=== PATIENT | female | born 1945 | race Caucasian/White ===

== ENCOUNTER 2023-02-09 12:06 | Emergency (ER) | payer MEDICARE ==
[2023-02-09] MEDS ORDERED: cloNIDine 0.1 MG Tab PO STA (12:19)
[2023-02-09 12:42] LABS: BASOPHILS ABSOLUTE AUTO 0.02 10^3/uL (0.00-0.50); BASOPHILS PERCENT AUTO 0.3 % (0-1); EOSINOPHILS ABSOLUTE AUTO 0.09 10^3/uL (0.00-1.50); EOSINOPHILS PERCENT AUTO 1.4 % (0-6); HEMATOCRIT 42.2 % (37.0-47.0); HEMOGLOBIN 14.1 g/dL (12.0-16.0); IMMATURE GRAN ABSOLUTE AUTO 0.04 10^3/uL (0.00-0.49); IMMATURE GRAN PERCENT AUTO 0.6 % (0.0-4.9); LYMPHOCYTES ABSOLUTE AUTO 2.46 10^3/uL (0.60-5.00); LYMPHOCYTES PERCENT AUTO 39.4 % (24-44); MEAN CORPUSCULAR HEMOGLOBIN 28.6 pg (27.0-32.0); MEAN CORPUSCULAR HGB CONC 33.4 g/dL (32.0-36.0); MEAN CORPUSCULAR VOLUME 85.6 fL (83.0-97.0); MONOCYTES ABSOLUTE AUTO 0.24 10^3/uL (0.00-1.50); MONOCYTES PERCENT AUTO 3.8 % (0-10); NEUTROPHILS ABSOLUTE AUTO 3.39 x10^3/uL (1.80-8.00); NEUTROPHILS PERCENT AUTO 54.5 % (41-71); PLATELET COUNT,PLT 252 10^3/uL (150-400); RED BLOOD CELL COUNT 4.93 x10^6/uL (4.00-5.50); WHITE BLOOD CELL COUNT,WBC 6.2 10^3/uL (4.0-11.0)
[2023-02-09 12:45] LABS: APPEARANCE,URINE CLEAR (CLEAR); BILIRUBIN,URINE NEGATIVE (NEGATIVE); COLOR,URINE YELLOW (YELLOW); GLUCOSE,URINE NEGATIVE (NEGATIVE); KETONES,URINE NEGATIVE (NEGATIVE); LEUKOCYTE ESTERASE,URINE NEGATIVE (NEGATIVE); NITRITE,URINE NEGATIVE (NEGATIVE); OCCULT BLOOD,URINE TRACE-INTACT (NEGATIVE); PROTEIN,URINE NEGATIVE (NEGATIVE); UROBILINOGEN,URINE 0.2 EU/dL (0.2-1.0)
[2023-02-09 12:52] LABS: BACTERIA,URINE NOT SEEN /HPF (NOT SEEN); EPITHELIAL CELLS,URINE NOT SEEN /HPF (NOT SEEN); MUCUS,URINE NOT SEEN /HPF (NOT SEEN); RBC,URINE 0-5 /HPF (0-5); WBC,URINE NOT SEEN /HPF (0-5)
[2023-02-09 12:53] LABS: ALBUMIN 3.6 g/dL (3.4-5.0); BILIRUBIN TOTAL 0.7 mg/dL (0.0-1.0); C-REACTIVE PROTEIN 1.7 mg/dL (0.2-0.8); CALCIUM 9.2 mg/dL (8.4-10.1); CREATININE 0.9 mg/dL (0.6-1.0); EST CRCL DRUG DOSING (CG) 40.75 mL/min; POTASSIUM,K 4.1 mEq/L (3.5-5.0); PROTEIN TOTAL,TP 7.6 g/dL (6.4-8.2)
== END 2023-02-09 14:00 | disposition home or self-care (01) ==
LOC: CC.ED 12:06
DX: I10 Essential (primary) hypertension (principal); Z79.899 Other long term (current) drug therapy; Z88.0 Allergy status to penicillin; Z88.2 Allergy status to sulfonamides
CPT/HCPCS: 36415; 80053; 81001; 84484; 85025; 85379; 86140; 93005; 93010; 99284; 99285; A9270-GY

== ENCOUNTER 2024-03-11 11:00 | Day surgery (SDC) | payer MEDICARE, OTHER ==
[2024-03-11] MEDS: Lactated Ringers 1,000 ML IV SCH (11:37)
[2024-03-11] MEDS ORDERED: Ketamine 200 MG/20 ML MDV ONE (11:54)
[2024-03-11] MEDS ORDERED: Propofol 200 MG/20 ML SDV ONE ×2 (11:54)
[2024-03-11] MEDS ORDERED: Phenylephrine 1% 10 MG/ML SDV ONE (11:54)
[2024-03-11] MEDS ORDERED: Midazolam 1 MG/ML 2 ML SDV ONE (11:54)
[2024-03-11] MEDS ORDERED: Flumazenil 0.1 MG/ML 10 ML MDV ONE (11:54)
[2024-03-11] MEDS ORDERED: fentaNYL 50 MCG/ML SDV ONE ×2 (11:54)
== END 2024-03-11 13:18 | disposition home or self-care (01) ==
LOC: CC.SDS 11:00
PROVIDERS: ATTEND Family Medicine
DX: K55.9 Vascular disorder of intestine, unspecified (principal); I10 Essential (primary) hypertension; E78.5 Hyperlipidemia, unspecified; Z88.0 Allergy status to penicillin; Z88.2 Allergy status to sulfonamides; Z91.013 Allergy to seafood; Z79.899 Other long term (current) drug therapy
CPT/HCPCS: 00811; 45380; 99100; J2250; J2371; J2704; J3010; J3490; J7120